=== PATIENT | male | born 1990 | race Caucasian/White ===

== ENCOUNTER 2019-08-30 00:27 | Emergency (ER) | payer BC, OTHER ==
--- NOTE | 2019-08-30 01:58 | ER Document Report ---
ED Medical Screen (RME) - General Chief Complaint: Skin Problem Stated Complaint: POSS ABCESS Time Seen by Provider: 08/30/19 00:58 Primary Care Provider: AVERY HERRMANN MD [Primary Care Provider] - Follow up as needed Mode of Arrival: Ambulatory Information source: Patient Notes: 28-year-old male patient presents emergency department with concern for possible abscess. Patient reports he first noticed this a few days ago, states it has progressively been getting worse. He states it is located between his anus and his scrotum. He reports it is very tender and he is unable to sit down. Exam not completed in triage due to location of possible abscess. I have greeted and performed a rapid initial assessment of this patient. A comprehensive ED assessment and evaluation of the patient, analysis of test results and completion of the medical decision making process will be conducted by additional ED providers. I have specifically instructed the patient or fami ly members with the patient to immediately return to any nursing staff should anything change in the patient's condition or with their chief complaint. TRAVEL OUTSIDE OF THE [place] IN LAST 30 DAYS: No - Related Data Allergies/Adverse Reactions: No Known Allergies Allergy (Unverified 01/22/16 14:11) Past Medical History - Past Medical History Cardiac Medical History: Denies: Hx Heart Attack, Hx Hypertension Pulmonary Medical History: Reports: Hx Asthma - YOUNG Neurological Medical History: Denies: Hx Cerebrovascular Accident, Hx Seizures GI Medical History: Denies: Hx Hepatitis, Hx Hiatal Hernia, Hx Ulcer Infectious Medical History: Denies: Hx Hepatitis Past Surgical History: Denies: Hx Open Heart Surgery, Hx Pacemaker Physical Exam - Vital signs Vitals: Temp Pulse Resp BP Pulse Ox 98.7 F 76 16 168/88 H 99 08/30/19 00:32 08/30/19 00:32 08/30/19 00:08/30/19 00:32 08/30/19 00:32 Course - Vital Signs Vital signs: Temp Pulse Resp BP Pulse Ox 98.7 F 76 16 168/88 H 99 08/30/19 00:32 08/30/19 00:32 08/30/19 00:32 08/30/19 00:32 08/30/19 00:32 Doctor's Discharge - Discharge Referrals: AVERY HERRMANN MD [Primary Care Provider] - Follow up as needed
[2019-08-30 04:45] VITALS: BP 136/72
[2019-08-30] MEDS ORDERED: LIDOCAINE 4%/TETRACAINE 0.5%/EPI 0.18% 5 ML TOPICAL SOLN TOP ONE (05:59)
[2019-08-30] MEDS ORDERED: LIDOCAINE 1% INJ-PF (10 MG/ML) 30 ML SDV INJ ONE (06:00)
--- NOTE | 2019-08-30 06:01 | ER Document Report ---
ED Skin Rash/Insect Bite/Abscs - General Chief Complaint: Abscess Stated Complaint: POSS ABCESS Time Seen by Provider: 08/30/19 00:58 Primary Care Provider: AVERY HERRMANN MD [Primary Care Provider] - 09/01/19 Mode of Arrival: Ambulatory Notes: Patient is a 28-year-old male who presents to the emergency department with a chief complaint of a possible abscess between his anus and his scrotum. States that it is on the right side. He went to urgent care yesterday and was prescribed doxycycline. Patient states that he started the doxycycline, but continues to have pain. Denies any past medical history. Denies any diabetes. Patient states that he was shaving the area and had noticed that there was a raised area a few days ago. Patient states that the abscess ended up getting bigger. TRAVEL OUTSIDE OF THE [place] IN LAST 30 DAYS: No - Related Data Allergies/Adverse Reactions: No Known Allergies Allergy (Unverified 01/22/16 14:11) Past Medical History - General Information source: Patient - Social History Smoking Status: Never Smoker Chew tobacco use (# tins/day): No Frequency of alcohol use: Occasional Drug Abuse: None Family History: Reviewed & Not Pertinent - Past Medical History Cardiac Medical History: Denies: Hx Heart Attack, Hx Hypertension Pulmonary Medical History: Reports: Hx Asthma - YOUNG Neurological Medical History: Denies: Hx Cerebrovascular Accident, Hx Seizures GI Medical History: Denies: Hx Hepatitis, Hx Hiatal Hernia, Hx Ulcer Infectious Medical History: Denies: Hx Hepatitis Past Surgical History: Denies: Hx Open Heart Surgery, Hx Pacemaker Review of Systems - Review of Systems Notes: REVIEW OF SYSTEMS: CONSTITUTIONAL : Denies recent illness. Denies recent unintentional weight loss. Denies fever, chills, or sweats. EENT: Denies eye, ear, throat, or mouth pain, discharge, or symptoms. Denies nasal or sinus congestion. CARDIOVASCULAR: Denies chest pain. RESPIRATORY: Denies shortness of breath, cough, congestion, difficulty breathing, or wheezing. GASTROINTESTINAL: Denies nausea, vomiting, and diarrhea. Denies abdominal pain. Denies constipation. GENITOURINARY: Denies difficulty urinating, burning, blood in urine, urgency or frequency. MUSCULOSKELETAL: Denies neck and back pain. Denies joint pain or swelling. SKIN: See HPI. HEMATOLOGIC : Denies easy bruising or bleeding. LYMPHATIC: Denies swollen, painful, enlarged glands. NEUROLOGICAL: Denies no numbness or tingling denies weakness. Denies headache. Denies altered mental status. Denies alteration in speech. PSYCHIATRIC: Denies stress, anxiety, alteration in sleep patterns, or depression. All other systems reviewed and negative. Physical Exam - Vital signs Vitals: Temp Pulse Resp BP Pulse Ox 98.7 F 76 16 168/88 H 99 08/30/19 00:32 08/30/19 00:32 08/30/19 00:32 08/30/19 00:32 08/30/19 00:32 - Notes Notes: PHYSICAL EXAMINATION: GENERAL: Appears well, healthy, well-nourished, no acute distress. HEAD: Normocephalic, atraumatic. EYES: PERRL, conjunctiva normal, all extraocular movements intact, sclera nonicteric ENT: Moist mucous membranes. NECK: Supple, no noticeable swelling, redness, rash. Normal range of motion. LUNGS: Equal breath sounds bilaterally and clear to auscultation. No wheezes rales or rhonchi. CARDIOVASCULAR: S1-S2, regular rate, regular rhythm. Radial pulses 2+, normal. ABDOMEN: Normoactive bowel sounds. Soft, nontender, no guarding, no rebound tenderness, and no masses palpated. EXTREMITIES: Normal strength and range of motion, no pitting or edema. No cyanosis. NEUROLOGICAL: Moves all extremities upon command. Strength 5/5 in all extremities. PSYCH: Normal mood, normal affect. SKIN: Warm, dry. Abscess noted to perineum on the right side between scrotum and anus. Course - Re-evaluation Re-evalutation: 08/30/19 07:55 Differential diagnosis includes but normal limited to: abscess, dermoid cyst, sebaceous cyst, furnucle, or others. Based on patient's physical exam and history, this is an abscess. It was drained in the ER. There is no surrounding cellulitis. I do not believe the patient has underlying necrotizing fasciitis. Based on patient's physical exam and these factors, they will continue with doxycycline. Patient will follow-up with primary care provider for abscess recheck. - Vital Signs Vital signs: Temp Pulse Resp BP Pulse Ox 98.2 F 74 16 136/72 H 100 08/30/19 04:44 08/30/19 04:44 08/30/19 04:44 08/30/19 04:44 08/30/19 04:44 Procedures - Incision and Drainage Right perineum Type: Simple Anesthetic type: 1% Lidocaine mL's of anesthetic: 8 Blade size: 11 I&D procedure: Betadine prep applied, Shurclens applied, Iodoform packing placed, Sterile dressing applied Incision Method: Incision made by scalpel Amount/type of drainage: 30 mls/purulent and blood Discharge - Discharge Clinical Impression: Abscess Condition: Stable Disposition: HOME, SELF-CARE Instructions: Abscess ([facility]), Post Incision and Drainage Additional Instructions: You were seen today in the emergency department for an abscess at your perineum area. It was drained here in the emergency department. Please continue doxycycline. Change your dressing twice a day. Leave the packing in and follow-up with Dr. Herrmann to have the packing removed in 2 days. Continue your doxycycline. Take [place] 1 tablet every 6 hours as needed for pain. He is use this sparingly. You can also take ibuprofen. Forms: Return to Work Referrals: AVERY HERRMANN MD [Primary Care Provider] - 09/01/19
[2019-08-30] MEDS ORDERED: HYDROCODONE/ACETAMINOPHEN 5-325 MG TABLET PO ONE (07:57)
[2019-08-30] MEDS ORDERED: HYDROCODONE/ACETAMINOPHEN 5-325 MG (6 TAB/ER DISP) PO PRN (07:57)
== END 2019-08-30 08:44 | disposition home or self-care (01) ==
LOC: ER 00:27
PROC: 0H99XZZ Drainage of Perineum Skin, External Approach (ICD-10-PCS; principal; 2019-08-30)
DX: L02.215 Cutaneous abscess of perineum (principal); J45.909 Unspecified asthma, uncomplicated
CPT/HCPCS: 99283; 87070; 87205; 10060; J3490 ×2